=== PATIENT | male | born 2000 | race Caucasian/White ===

== ENCOUNTER 2023-02-12 17:44 | Emergency (ER) | payer OTHER, SELFPAY ==
[2023-02-12 17:58] VITALS: BP 135/95; PULSE 116; RESP 18; TEMP 36.5; O2SAT 98
--- NOTE | 2023-02-12 18:10 | ED.URI ---
HPI - URI/Sore Throat General Chief Complaint: Upper Respiratory Infection Stated Complaint: Sore Throat/Congestion/Cough Time Seen by Provider: 02/12/23 18:09 Source: patient and RN notes reviewed Mode of arrival: ambulatory History of Present Illness HPI Narrative: Patient is a 22-year-old male who presents to the [facility] with complaints of sore throat for the past 3 days. He also reports some nasal congestion and drainage. Reports frequent productive cough with green sputum. Denies chest pain or shortness breath. Denies recent fevers or chills. Denies abdominal pain, nausea, vomiting, diarrhea. Related Data Home Medications Medication Instructions Recorded Confirmed clonazepam 1 mg tablet 1 mg PO BID 02/12/23 02/12/23 famotidine 40 mg tablet 40 mg PO DAILY 02/12/23 02/12/23 fluoxetine 40 mg capsule 40 mg PO DAILY 02/12/23 02/12/23 tirzepatide 7.5 mg/0.5 mL See Rx Instructions .Route .COMPLEX 02/12/23 02/12/23 subcutaneous pen injector (Thadunjaro) Allergies Allergy/AdvReac Type Severity Reaction Status Date / Time amoxicillin Allergy Unknown RASH Unverified 02/12/23 18:10 Penicillins Allergy Rash Verified 02/12/23 18:10 Review of Systems Review of Systems: CONSTITUTIONAL: Denies fever, chills, or sweats. EYES: Denies visual changes, redness, or discharge. ENT: Reports sore throat. Reports nasal congestion and drainage. CARDIOVASCULAR: Denies chest pain, palpitations, or edema. RESPIRATORY: Reports cough. Denies dyspnea. GASTROINTESTINAL: Denies abdominal pain, nausea, vomiting, or diarrhea. GENITOURINARY: Denies dysuria or hematuria. SKIN: Denies rash or itching. MUSCULOSKELETAL: Denies back pain, joint pain, or myalgia. NEUROLOGIC: Denies headache, numbness, or weakness. Pertinent positives per HPI. PMFSH Comments At the time of my signature, I reviewed and agree with the nursing past medical, surgical, social, and family history. There is no relevant family history pertinent to the patient complaint. Exam Narrative: GENERAL: This is a well-nourished, well-developed patient, in no apparent distress. HEAD: normocephalic, atraumatic. EYES: Sclera clear/white. Vision is grossly intact. EARS: External ears normal, auditory canals clear and without drainage. Hearing grossly intact. NOSE: External nose normal, nares without redness. Some rhinorrhea. THROAT: Mucous membranes moist, oropharyngeal erythema without exudate. NECK: Neck supple, non-tender without lymphadenopathy, masses or thyromegaly. CARDIOVASCULAR: Regular rate and rhythm without murmurs, gallops, or rubs. RESPIRATORY: Clear to auscultation. Breath sounds equal bilaterally. No wheezes, rales, or rhonchi. GASTROINTESTINAL: Abdomen soft, non-tender, nondistended. Bowel sounds are active. No hepato-splenomegaly, or palpable masses. No guarding. SKIN: warm, intact with no suspicious lesions or rash, good texture and turgor. NEURO: awake, alert, and oriented to person, place and time. There were no obvious focal neurologic abnormalities. Course Course Level of Care: Express Care Visit Vital Signs Vital signs: Vital Signs Temperature 97.7 F 02/12/23 17:58 Pulse Rate 116 H 02/12/23 17:58 Respiratory Rate 18 02/12/23 17:58 Blood Pressure 135/95 H 02/12/23 17:58 Pulse Oximetry 98 02/12/23 17:58 Oxygen Delivery Room Air 02/12/23 17:58 Temperature 97.7 F 02/12/23 17:58 Pulse Rate 116 H 02/12/23 17:58 Respiratory Rate 18 02/12/23 17:58 Blood Pressure 135/95 H 02/12/23 17:58 Pulse Oximetry 98 02/12/23 17:58 Oxygen Delivery Room Air 02/12/23 17:58 Reviewed MDM - URI/Sore Throat MDM Narrative Medical decision making narrative: Viral illness may last between 7-21 days; antibiotics do not cure viral illness and are NOT recommended at this time. Also, recommend symptomatic treatment includes: rest, fluids, and increase humidity of the air at home. Recommend Acetaminophen as directed on the bottle
--- NOTE | 2023-02-12 19:34 | PC.NURSE ---
NOTED RN SPOKE WITH JEANNINE LUX, INFECTION CONTROL, IN REGARD TO PT SICK CONTACT WHO RECENTLY TRAVELED TO [place] FROM [place].
== END 2023-02-12 18:20 | disposition home or self-care (01) ==
PROVIDERS: Emergency Provider Nurse Practitioner; PCP Hospitalist
DX: B34.9 Viral infection, unspecified (principal); K21.9 Gastro-esophageal reflux disease without esophagitis; E11.9 Type 2 diabetes mellitus without complications; K76.0 Fatty (change of) liver, not elsewhere classified; F41.9 Anxiety disorder, unspecified; F32.A Depression, unspecified
CPT/HCPCS: 87081; 87880; 99213; G0463